=== PATIENT | male | born 1975 ===

== ENCOUNTER 2018-02-28 08:04 | Emergency (ER) | payer OTHER ==
[2018-02-28 08:04] VITALS: BMI 27.4
[2018-02-28 08:16] VITALS: TEMP 98.3; O2SAT 100
--- NOTE | 2018-02-28 08:27 | ED PDOC ---
Arrival/HPI - General Chief Complaint: Abdominal Pain Time Seen by Provider: 02/28/18 08:23 Historian: Patient - History of Present Illness Narrative History of Present Illness (Text): 02/28/18 08:40 42 year old male, whose PMH includes kidney stones, who presents to the emergency department complaining of severe non-radiating lower left quadrant abdominal pain since 05:30 AM this morning. Patient reports his symptoms are associated with nausea and x2 episodes of vomiting. Patient also notes seeing blood in urine and states he has PMH of kidney stone. Patient denies fever, chest pain, back pain, or other complaints. PMD: None Time/Duration: 4-6 hours Symptom Onset: Sudden Symptom Course: Unchanged Severity Level: Severe Activities at Onset: Rest Context: Home Past Medical History - Provider Review Nursing Documentation Reviewed: Yes - Infectious Disease Hx of Infectious Diseases: None - Psychiatric Hx Depression: No Hx Emotional Abuse: No Hx Physical Abuse: No Hx Substance Use: Yes (THC) - Suicidal Assessment Feels Threatened In Home Enviroment: No Family/Social History - Physician Review Nursing Documentation Reviewed: Yes Family/Social History: Unknown Family HX Smoking Status: Heavy Smoker > 10 Cigarettes Daily Hx Alcohol Use: Yes Frequency of alcohol use: Daily Hx Substance Use: Yes (THC) Hx Substance Use Treatment: No Allergies/Home Meds Allergies/Adverse Reactions: Allergies No Known Allergies Allergy (Verified 02/28/18 08:08) Review of Systems - Review of Systems Constitutional: absent: Fevers ENT: absent: Sinus Congestion Respiratory: absent: SOB Cardiovascular: absent: Chest Pain Gastrointestinal: Abdominal Pain (lower left quadrant ), Nausea, Vomiting. absent: Constipation, Diarrhea, Hematochezia Genitourinary Male: Hematuria Musculoskeletal: absent: Back Pain Skin: absent: Rash Neurological: absent: Headache Endocrine: absent: Diaphoresis Physical Exam Vital Signs Reviewed: Yes Vital Signs Temp Pulse Resp BP Pulse Ox 02/28/18 11:22 100 02/28/18 11:20 61 17 118/72 100 02/28/18 10:30 62 17 119/74 100 02/28/18 08:33 111/70 02/28/18 08:05 98.3 F 58 L 22 104/65 100 Temperature: Afebrile Blood Pressure: Normal Pulse: Bradycardic Respiratory Rate: Normal Appearance: Positive for: Well-Appearing, Non-Toxic, Comfortable Pain Distress: None Mental Status: Positive for: Alert and Oriented X 3 - Systems Exam Head: Present: Atraumatic, Normocephalic Pupils: Present: PERRL Extroacular Muscles: Present: EOMI Conjunctiva: Present: Normal Respiratory/Chest: Present: Clear to Auscultation, Good Air Exchange. No: Respiratory Distress, Accessory Muscle Use, Wheezes, Decreased Breath Sounds, Rales, Retracting, Rhonchi Cardiovascular: Present: Regular Rate and Rhythm, Normal S1, S2. No: Murmurs Abdomen: Present: Tenderness (left lower quadrant tenderness ), Normal Bowel Sounds. No: Distention, Peritoneal Signs, Rebound, Guarding Back: Present: CVA Tenderness (left side) Neurological: Present: GCS=15, CN II-XII Intact, Speech Normal Skin: Present: Warm, Dry, Normal Color. No: Rashes Psychiatric: Present: Alert, Oriented x 3, Normal Insight, Normal Concentration Medical Decision Making ED Course and Treatment: 02/28/18 Impression: 42 year old male with lower left quadrant tenderness and + left sided CVA complaining of abdominal pain. Plan: -- CT abdomen and pelvis -- Labs -- Morphine, Toradol, Zofran, and Sodium Chloride -- Urinalysis -- Reassess and disposition Progress Notes: - Lab Interpretations Lab Results: 02/28/18 08:29 02/28/18 08:29 Lab Results 02/28/18 09:30: Urine Color Yellow, Urine Appearance Turbid, Urine pH 8.0, Ur Specific Huntley 1.010, Urine Protein Trace H, Urine Glucose (UA) Negative, Urine Ketones 15 H, Urine Blood Large H, Urine Nitrate Negative, Urine Bilirubin Negative, Urine Urobilinogen 0.2, Ur Leukocyte Esterase Negative, Urine RBC Tntc, Urine WBC Negative 02/28/18 08:29: Sodium 142, Potassium 4.0, Chloride 103, Carbon Dioxide 26, Anion Gap 17, BUN 22 H, Creatinine 0.9, Est GFR ( Amer) > 60, Est GFR ( Non-Af Amer) > 60, Random Glucose 94, Calcium 10.2, Magnesium 2.1, Total Bilirubin 0.3, AST 20, ALT 15, Alkaline Phosphatase 61, Total Protein 7.1, Albumin 4.5, Globulin 2.6, Albumin/Globulin Ratio 1.7, Lipase 46 02/28/18 08:29: WBC 12.4 H, RBC 4.57, Hgb 14.8, Hct 41.0 L, MCV 89.7, MCH 32.4, MCHC 36.1, RDW 14.1, Plt Count 297, MPV 10.5, Gran % 76.0 H, Lymph % (Auto) 17.1 L, [place] % (Auto) 5.2, Eos % (Auto) 1.5, Baso % (Auto) 0.2, Gran # 9.43 H, Lymph # (Auto) 2.1, F[place]ardo # (Auto) 0.6, Eos # (Auto) 0.2, Baso # (Auto) 0.03 I have reviewed the lab results: Yes - RAD Interpretation Radiology Orders: 02/28/18 08:29 ABD & PELVIS W/O PO OR IV CONT [CT] Stat Food Scientist: Radiologist - Medication Orders Current Medication Orders: Discontinued Medications Sodium Chloride (Sodium Chloride 0.9%) 1,000 mls @ 1,000 mls/hr IV .Q1H STA Stop: 02/28/18 09:28 Last Admin: 02/28/18 08:20 Dose: 1,000 mls/hr eMAR Start Stop Document 02/28/18 08:20 SF (Rec: 02/28/18 08:32 SF [id number]) Intravenous Solution Start Date 02/28/18 Start Time 08:20 End Date 02/28/18 End time 09:20 Total Infusion Time 60 Ketorolac Tromethamine (Toradol) 30 mg IVP STAT STA Stop: 02/28/18 08:30 Last Admin: 02/28/18 08:34 Dose: 30 mg MAR Pain Assessment Document 02/28/18 08:34 SF (Rec: 02/28/18 08:35 SF [id number]) Pain Reassessment Is this a pain reassessment? Yes Sleep Is patient sleeping during reassessment? No IVP Administration Document 02/28/18 08:34 SF (Rec: 02/28/18 08:35 SF [id number]) Charges for Administration # of IVP Administrations 1 Morphine Sulfate (Morphine) 4 mg IVP STAT STA Stop: 02/28/18 08:30 Last Admin: 02/28/18 08:35 Dose: 4 mg MAR Pain Assessment Document 02/28/18 08:35 SF (Rec: 02/28/18 08:35 SF [id number]) Pain Reassessment Is this a pain reassessment? Yes Sleep Is patient sleeping during reassessment? No Presence of Pain Presence of Pain Yes IVP Administration Document 02/28/18 08:35 SF (Rec: 02/28/18 08:35 SF [id number]) Charges for Administration # of IVP Administrations 1 Ondansetron HCl (Zofran Inj) 8 mg IVP STAT STA Stop: 02/28/18 08:30 Last Admin: 02/28/18 08:35 Dose: 8 mg IVP Administration Document 02/28/18 08:35 SF (Rec: 02/28/18 08:35 SF [id number]) Charges for Administration # of IVP Administrations 1 - Scribe Statement The provider has reviewed the documentation as recorded by the Scribe Claritza Reeder Provider Scribe Attestation: All medical record entries made by the Scribe were at my direction and personally dictated by me. I have reviewed the chart and agree that the record accurately reflects my personal performance of the history, physical exam, medical decision making, and the department course for this patient. I have also personally directed, reviewed, and agree with the discharge instructions and disposition. Disposition/Present on Arrival - Present on Arrival Any Indicators Present on Arrival: No History of DVT/PE: No History of Uncontrolled Diabetes: No Urinary Catheter: No History of Decub. Ulcer: No History Surgical Site Infection Following: None - Disposition Have Diagnosis and Disposition been Completed?: Yes Diagnosis: Kidney stone Disposition: HOME/ ROUTINE Disposition Time: 11:00 Condition: IMPROVED Discharge Instructions (ExitCare): Kidney Stones (DC), How to Strain Your Urine Additional Instructions: ANA MONTES DE OCA, thank you for letting us take care of you today. Your provider was Clarence uNnn DO and you were treated for KIDNEY STONE. The emergency medical care you received today was directed at your acute symptoms. If you were prescribed any medication, please fill it and take as directed. It may take several days for your symptoms to resolve. Return to the Emergency Department if your symptoms worsen, do not improve, or if you have any other problems. Please contact your doctor or call one of the physicians/clinics you have been referred to that are listed on the Patient Visit Information form that is included in your discharge packet. Bring any paperwork you were given at discharge with you along with any medications you are taking to your follow up visit. Our treatment cannot replace ongoing medical care by a primary care provider outside of the emergency department. Thank you for allowing the [facility] team to be part of your care today. Follow up with Dr. Che, urology, in 2-3 days for re-evaluation and further management. Prescriptions: Ciprofloxacin [Cipro] 500 mg PO BID #14 tab Ibuprofen [Motrin] 600 mg PO Q6 PRN #20 tab PRN Reason: Pain, Moderate (4-7) oxyCODONE [oxyCODONE Immediate Release Tab] 5 mg PO Q6 PRN #15 tab PRN Reason: Pain, Severe (8-10) Tamsulosin [Flomax] 0.4 mg PO DAILY #7 cap Referrals: Richardson Che MD [Staff Provider] - Follow up with primary Forms: [employer] ([place])
[2018-02-28] MEDS ORDERED: Sodium Chloride 0.9% 1,000 ML IV STA (08:29)
[2018-02-28] MEDS ORDERED: Morphine 4 mg/ml ISec IVP STA (08:29)
[2018-02-28] MEDS ORDERED: Morphine 4 mg/ml ISec ONE (08:35)
[2018-02-28 08:43] LABS: BASO # 0.03 K/mm3 (0.0-2.0); BASO % 0.2 % (0.0-3.0); EOS # 0.2 (0.0-0.7); EOS % 1.5 % (1.5-5.0); GRAN # 9.43 (1.4-6.5); HEMOGLOBIN 14.8 g/dL (14.0-18.0); LYMPH # 2.1 (1.2-3.4); LYMPH % 17.1 % (22.0-35.0); MEAN CELL VOLUME 89.7 fl (80.0-105.0); MEAN CORPUSCULAR HEMOGLOBIN 32.4 pg (25.0-35.0); MEAN CORPUSCULAR HGB CONC 36.1 g/dl (31.0-37.0); MEAN PLATELET VOLUME 10.5 fl (7.0-11.0); MONO # 0.6 (0.1-0.6); MONO % 5.2 % (1.0-6.0); RBC 4.57 10^6/uL (3.5-6.1); RED CELL DISTRIBUTION WIDTH 14.1 % (11.5-14.5); WHITE BLOOD COUNT 12.4 10^3/ul (4.5-11.0)
[2018-02-28 08:52] LABS: ALB/GLOB RATIO 1.7 (1.1-1.8); ALBUMIN 4.5 g/dL (3.0-4.8); ALT/SGPT 15 U/L (7-56); AST/SGOT 20 U/L (17-59); BLOOD UREA NITROGEN 22 mg/dL (7-21); CALCIUM 10.2 mg/dL (8.4-10.5); GFR AFRICAN-AMERICAN > 60; GFR NON-AFRICAN AMERICAN > 60; LIPASE 46 U/L (23-300)
[2018-02-28 09:49] LABS: URINE APPEARANCE TURBID (CLEAR); URINE BILIRUBIN NEGATIVE (NEGATIVE); URINE BLOOD LARGE (NEGATIVE); URINE COLOR YELLOW (YELLOW); URINE GLUCOSE (UA) NEGATIVE (NEGATIVE); URINE LEUKOCYTE ESTERASE NEGATIVE Leu/uL (NEGATIVE); URINE PROTEIN TRACE mg/dL (<30 mg/dL); URINE UROBILINOGEN 0.2 E.U./dL (<1 E.U./dL)
[2018-02-28 09:51] LABS: URINE RBC TNTC /hpf (0-2); URINE WBC NEGATIVE /hpf (0-6)
--- NOTE | 2018-02-28 10:51 | CT ---
PROCEDURE: CT Abdomen and Pelvis without intravenous contrast HISTORY: left flank pain - h/o kidney stones COMPARISON: None. TECHNIQUE: Unenhanced study. Neither oral nor intravenous contrast administered. Radiation dose: Total exam DLP = 618.51 go mGy-cm. This CT exam was performed using one or more of the following dose reduction techniques: Automated exposure control, adjustment of the mA and/or kV according to patient size, and/or use of iterative reconstruction technique. FINDINGS: LOWER THORAX: Left lower lobe pulmonary mass/infiltrate 10.8 mm. No additional pulmonary nodules or masses identified. Fullness in the right hilum incompletely visualized. LIVER: Unremarkable. No gross lesion or ductal dilatation. GALLBLADDER AND BILE DUCTS: Unremarkable. PANCREAS: Unremarkable. No gross lesion or ductal dilatation. SPLEEN: Unremarkable. ADRENALS: Unremarkable. No mass. KIDNEYS AND URETERS: Right kidney: Unremarkable as is the right ureter. Left kidney in ureter: Dilated left renal pelvis and left ureter. The point of obstruction is a 6 mm calculus 10 cm above the left ureterovesical junction. VASCULATURE: Unremarkable. No aortic aneurysm. BOWEL: Unremarkable. No obstruction. No gross mural thickening. APPENDIX: Unremarkable. Normal appendix. PERITONEUM: Unremarkable. No free fluid. No free air. LYMPH NODES: Unremarkable. No enlarged lymph nodes. BLADDER: Unremarkable. REPRODUCTIVE: Unremarkable. BONES: No acute fracture. OTHER FINDINGS: None. IMPRESSION: Obstructive uropathy on the left related to distal 6 mm ureteral calculus. Left lower lobe mass/ infiltrate. Questionable hilar prominence on the right. Follow-up CT of the thorax recommended with intravenous contrast.
[2018-02-28 11:20] VITALS: RESP 17
[2018-02-28 11:22] VITALS: BP 118/72; PULSE 61
== END 2018-02-28 11:22 | disposition home or self-care (01) ==
LOC: ED 08:04
DX: N20.0 Calculus of kidney (principal)
CPT/HCPCS: 74176; 80053; 81001; 83690; 83735; 85025; 87086; 96361; 96374; 96375; 99285; J1885; J2270; J2405; J7030